=== PATIENT | male | born 1980 | race Caucasian/White ===

== ENCOUNTER → 2021-05-06 12:05 | Outpatient (CLI) | payer OTHER, SELFPAY ==
--- NOTE | 2021-05-06 12:20 | RAD_ITS ---
STUDY: X-RAY CHEST REASON FOR EXAM: Male, 40 years old. CHRONIC OBSTRUCTIVE LUNG DISEASE TECHNIQUE: COPD. Cough. COMPARISON: None. FINDINGS: The lungs are clear and expanded. There is no demonstrated pleural abnormality. Normal size heart. Normal mediastinum and santino. Normal visualized pulmonary arteries. Normal visualized aortic arch and descending thoracic aorta. There are degenerative changes of the visualized thoracic spine. Normal visualized ribs, clavicles, and shoulders. There is no demonstrated abnormality of the visualized soft tissue structures of the upper abdomen. RAD/Chest PA and Lateral IMPRESSION: No acute abnormality is seen. Electronically Signed: Efrain Gonzalez MD at 15:19 EDT , Service support ,
[2021-05-06 14:20] LABS: CRP 3.47 mg/L (0.0-3.0); Cholesterol 182 mg/dL (200); High Density Lipoprotein 31 mg/dL; Triglycerides 265 mg/dL; Very Low Density Lipoprotein 53 mg/dL (5-40)
== END ==
DX: J44.9 Chronic obstructive pulmonary disease, unspecified (principal); M25.50 Pain in unspecified joint; E78.5 Hyperlipidemia, unspecified
CPT/HCPCS: 36415; 71046; 80061; 86140